=== PATIENT | female | born 1995 | race African-American/Black ===

== ENCOUNTER 2018-05-26 19:47 | Emergency (ER) | payer BC, OTHER ==
[~2018-05-26] VITALS: Ht 170.2 cm; Wt 95.3 kg
--- NOTE | 2018-05-26 19:47 | NUR ---
PATIENT AMBULATED TO ER BED 4.
[2018-05-26 19:54] VITALS: BP 138/89
--- NOTE | 2018-05-26 20:05 | NUR ---
PT PRESENTS TO ED WITH C/O THROAT IRRIATION AND INTERMITTENT CP S/P "EATING A LATVIAN NUT" X 1 HR AGO. PT DENIES SOB AT THIS TIME. PT SPEAKING IN FULL SENTENCES, NO DISTRESS NOTED. PT PLACED ONTO ALL MONITORS, PENDING MD [place]. PMH-- NUT ALLERGY RX--DENIES
[2018-05-26] MEDS ORDERED: diphenhydrAMINE 50 MG/ML VIAL IM ONE (20:20)
[2018-05-26] MEDS ORDERED: methylPREDNISolone SS 125 MG/2 ML VIAL IM ONE (20:20)
--- NOTE | 2018-05-26 21:43 | NUR ---
Patient discharged with v/s stable. Written and verbal after care instructions given and explained. Patient alert, oriented and verbalized understanding of instructions. Ambulatory with steady gait. All questions addressed prior to discharge. ID band removed. Patient advised to follow up with PMD. Rx of PREDNISONE, BENEDRYL given. Patient educated on indication of medication including possible reaction and side effects. Opportunity to ask questions provided and answered.
[2018-05-26 21:44] VITALS: BP 138/89
== END 2018-05-26 21:39 | disposition home or self-care (01) ==
LOC: MED 19:47
DX: T78.1XXA Other adverse food reactions, not elsewhere classified, initial encounter (principal); R06.00 Dyspnea, unspecified; R07.0 Pain in throat; X58.XXXA Exposure to other specified factors, initial encounter
CPT/HCPCS: 70360; 71045; 93005; 96372; 99283; J1200; J2930